=== PATIENT | male | born 1955 | race African-American/Black ===

== ENCOUNTER 2021-01-05 16:14 | Inpatient (IN) | payer MEDICAID, OTHER ==
[~2021-01-05] VITALS: Ht 175.3 cm; Wt 95.3 kg
[2021-01-05] MEDS ORDERED: MORPHINE SULFATE 4 MG/ML CPJ (NOT FOR IM USE) IV STA (16:54)
[2021-01-05] MEDS ORDERED: FUROSEMIDE 40MG/4ML VIAL IV ONE (17:00)
[2021-01-05] MEDS ORDERED: NITROGLYCERIN 50MG PREMIX 250 ML IV ONE (17:00)
[2021-01-05 18:30] LABS: BASOPHILS % 0.1 % (0.0-2.0); EOSINOPHILS % 0.1 % (0.0-5.0); HEMATOCRIT. 35.8 % (42.0-52.0); HEMOGLOBIN. 11.5 g/dL (14.0-18.0); LYMPHOCYTES % 7.1 % (20.0-50.0); MEAN CORPUSCULAR HEMOGLOBIN 36.3 pg (28.0-32.0); MEAN CORPUSCULAR VOLUME 113.2 fL (80.0-94.0); MONOCYTES % 3.9 % (2.0-8.0); NEUTROPHILS % 88.8 % (40.0-76.0); RED BLOOD CELL COUNT 3.17 mill/uL (4.7-6.1); RED CELL DISTRIBUTION WIDTH 16.7 % (11.6-14.6)
[2021-01-05 18:36] LABS: CHLORIDE 111 mEq/L (98-107)
[2021-01-05 19:22] LABS: MEAN PLATELET VOLUME 10.6 fl (7.4-10.4); PLATELET ESTIMATE DECREAS
[2021-01-05 19:23] LABS: PLATELET 82 x1000/uL (130-400)
[2021-01-05] MEDS ORDERED: ALBUTEROL (0.083%) 2.5MG/3ML NEB HHN ONE (23:00)
[2021-01-06] VITALS (78 sets, daily range): BP systolic 62–236; BP diastolic 30–175
[2021-01-06 04:34] LABS: BG BASE EXCESS -0.2 mmol/L (-2.0-2.0); BG CARBOXYHEMOGLOBIN 0.3 % (0.5-1.5); BG DEOXYHEMOGLOBIN 0.9 % (0.0-5.0); BG FRACTION INSPIRED OXYGEN 40; BG HCO3 ACT 23.6 mmol/L (22.0-26.0); BG METHEMOGLOBIN 0.4 % (0.0-1.5); BG OXYGEN SATURATION 99.1 % (92.0-98.5); BG OXYHEMOGLOBIN 98.4 % (94.0-97.0); BG PCO2 35.3 mmHg (35.0-45.0); BG PH 7.443 (7.350-7.450); BG PO2 172.2 mmHg (75.0-100.0); BG SAMPLE SITE LEFT RADIAL; BG TOTAL HEMOGLOBIN 10.2 g/dL (12.0-18.0); BG VENT MODE MASK - BIPAP
[2021-01-06] MEDS ORDERED: MORPHINE SULFATE 2 MG/ML CPJ (NOT FOR IM USE) IV PRN (05:15)
[2021-01-06] MEDS ORDERED: DEXTROSE 50% WATER 50ML SYRINGE IV PRN (05:15)
[2021-01-06] MEDS: INSULIN LISPRO 100 UNITS/ML SUBCUT SCH ×4 (06:08→21:00)
[2021-01-06] MEDS: BLOOD SUGAR DIAGNOSTIC STRIP TEST SCH ×4 (06:08→21:00)
[2021-01-06] MEDS: ACETAMINOPHEN 650MG/20.3ML UDC PO PRN (06:09)
[2021-01-06] MEDS: NITROGLYCERIN 50MG PREMIX 250 ML IV PRN ×4 (06:11→23:57)
[2021-01-06 06:28] LABS: CHLORIDE 110 mEq/L (98-107)
[2021-01-06 06:38] LABS: CREATINE KINASE MB FRACTION 1.2 ng/mL (0.5-3.6); PHOSPHORUS 2.3 mg/dL (2.5-4.9)
[2021-01-06 06:39] LABS: CREATINE KINASE 215 IU/L (39-308); LDL CHOLESTEROL 18 mg/dL (5-100)
[2021-01-06 06:40] LABS: HDL CHOLESTEROL 16 mg/dL (40-59)
[2021-01-06 06:44] LABS: CLARITY URINE CLEAR (CLEAR); COLOR URINE DARK YELLOW (YELLOW); KETONES URINE NEGATIVE (NEGATIVE); LEUKOCYTE ESTERASE URINE TRACE (NEGATIVE); NITRITE URINE NEGATIVE (NEGATIVE); OCCULT BLOOD URINE 3+ (NEGATIVE); PH URINE 5.5 (4.5-8.0); PROTEIN URINE 2+ (NEGATIVE); SPECIFIC GRAVITY URINE 1.021 (1.005-1.030)
[2021-01-06 07:03] LABS: *COCAINE SCREEN URINE NEGATIVE (NEGATIVE); METHADONE URINE SCREEN NEGATIVE (NEGATIVE); OPIATES URINE SCREEN PRESUMTIVE POSITIVE (NEGATIVE)
[2021-01-06 07:04] LABS: *AMPHETAMINES SCREEN URINE NEGATIVE (NEGATIVE); *BARBITURATES SCREEN URINE NEGATIVE (NEGATIVE); *BENZODIAZEPINES SCREEN URINE NEGATIVE (NEGATIVE); CANNABINOID URINE SCREEN NEGATIVE (NEGATIVE); PHENCYCLIDINE URINE SCREEN NEGATIVE (NEGATIVE)
[2021-01-06 07:18] LABS: HEMATOCRIT. 26.4 % (42.0-52.0); HEMOGLOBIN. 8.8 g/dL (14.0-18.0); MEAN CORPUSCULAR HEMOGLOBIN 36.3 pg (28.0-32.0); MEAN CORPUSCULAR VOLUME 109.2 fL (80.0-94.0); MEAN PLATELET VOLUME 10.8 fl (7.4-10.4); PLATELET 68 x1000/uL (130-400); RED BLOOD CELL COUNT 2.41 mill/uL (4.7-6.1); RED CELL DISTRIBUTION WIDTH 16.1 % (11.6-14.6)
[2021-01-06] MEDS ORDERED: ACETAMINOPHEN 325MG TABLET PO PRN (07:45)
[2021-01-06] MEDS ORDERED: FUROSEMIDE 40MG/4ML VIAL IVP SCH ×2 (08:00→09:00)
[2021-01-06] MEDS: PANTOPRAZOLE SODIUM 40 MG/VIAL IV SCH (08:28)
[2021-01-06] MEDS: CEFTRIAXONE 1,000 MG in DEXTROSE 5% WATER 50 ML IV SCH (08:28)
[2021-01-06] MEDS: IPRATROPIUM/ALBUTEROL 0.5-3(2.5)MG/3ML NEB HHN SCH ×5 (08:41→23:59)
[2021-01-06 08:52] LABS: TOTAL IRON BINDING CAPACITY 207 ug/dL (250-450)
[2021-01-06] MEDS ORDERED: CARVEDILOL 3.125 MG TABLET PO SCH (09:00)
[2021-01-06] MEDS ORDERED: CEFTRIAXONE 1 G PREMIX 50 ML IV SCH (09:00)
[2021-01-06] MEDS ORDERED: LISINOPRIL 20MG TABLET PO SCH (09:00)
[2021-01-06] MEDS ORDERED: CARVEDILOL 3.125 MG TABLET PO NR (09:45)
[2021-01-06] MEDS ORDERED: FUROSEMIDE 40MG/4ML VIAL IVP NR (09:45)
[2021-01-06] MEDS: AZITHROMYCIN 500 MG in DEXT 5% WATER 250 ML IV SCH (09:50)
[2021-01-06 11:25] LABS: INR 2.2; PROTHROMBIN TIME 22.4 sec (9.6-11.0)
[2021-01-06 11:32] LABS: T4 FREE 2.77 ng/dL (0.76-1.46)
[2021-01-06 12:44] LABS: PLATELET ESTIMATE DECREASED
[2021-01-06] MEDS: MAGNESIUM OXIDE 400MG TABLET PO SCH (12:55)
[2021-01-06] MEDS ORDERED: LORAZEPAM 2MG/ML CPJ IV PRN (13:15)
[2021-01-06] MEDS: FUROSEMIDE 100MG/10ML VIAL IVP SCH (17:05)
[2021-01-06] MEDS: CHLORDIAZEPOXIDE 25MG CAPSULE PO SCH (17:06)
[2021-01-06] MEDS: LISINOPRIL 20MG TABLET PO SCH (17:06)
[2021-01-06] MEDS: HYDRALAZINE 20MG/ML VIAL IV PRN ×2 (18:36→22:28)
[2021-01-06 20:03] LABS: BG BASE EXCESS 0.1 mmol/L (-2.0-2.0); BG CARBOXYHEMOGLOBIN 0.1 % (0.5-1.5); BG DEOXYHEMOGLOBIN 0.2 % (0.0-5.0); BG FRACTION INSPIRED OXYGEN 100; BG HCO3 ACT 24.1 mmol/L (22.0-26.0); BG METHEMOGLOBIN 0.6 % (0.0-1.5); BG OXYGEN SATURATION 99.8 % (92.0-98.5); BG OXYHEMOGLOBIN 99.1 % (94.0-97.0); BG PCO2 36.4 mmHg (35.0-45.0); BG PH 7.439 (7.350-7.450); BG PO2 433.3 mmHg (75.0-100.0); BG SAMPLE SITE LEFT RADIAL; BG TOTAL HEMOGLOBIN 9.9 g/dL (12.0-18.0); BG VENT MODE MASK - BIPAP
[2021-01-06] MEDS: ATORVASTATIN CALCIUM 40MG TABLET PO SCH (21:00)
[2021-01-06] MEDS: CARVEDILOL 6.25 MG TABLET PO SCH (21:00)
[2021-01-06] MEDS ORDERED: CHLORDIAZEPOXIDE 25MG CAPSULE PO SCH (22:00)
[2021-01-07] VITALS (94 sets, daily range): BP systolic 96–196; BP diastolic 45–139
[2021-01-07] MEDS: CHLORDIAZEPOXIDE 25MG CAPSULE PO SCH (02:00)
[2021-01-07] MEDS: IPRATROPIUM/ALBUTEROL 0.5-3(2.5)MG/3ML NEB HHN SCH ×5 (04:00→20:31)
[2021-01-07] MEDS: HYDRALAZINE 20MG/ML VIAL IV PRN ×2 (04:48→22:45)
[2021-01-07] MEDS: ONDANSETRON HCL 4MG/2ML INJ IV PRN (04:48)
[2021-01-07 05:00] LABS: HEMATOCRIT. 28.6 % (42.0-52.0); HEMOGLOBIN. 9.2 g/dL (14.0-18.0); MEAN CORPUSCULAR HEMOGLOBIN 35.7 pg (28.0-32.0); MEAN CORPUSCULAR VOLUME 111.2 fL (80.0-94.0); MEAN PLATELET VOLUME 10.9 fl (7.4-10.4); PLATELET 69 x1000/uL (130-400); RED BLOOD CELL COUNT 2.58 mill/uL (4.7-6.1); RED CELL DISTRIBUTION WIDTH 16.7 % (11.6-14.6)
[2021-01-07 05:28] LABS: CHLORIDE 111 mEq/L (98-107)
[2021-01-07] MEDS: ACETAMINOPHEN 650MG/20.3ML UDC PO PRN ×2 (05:30→23:08)
[2021-01-07 05:35] LABS: PHOSPHORUS 3.3 mg/dL (2.5-4.9)
[2021-01-07] MEDS: BLOOD SUGAR DIAGNOSTIC STRIP TEST SCH (06:21)
[2021-01-07] MEDS: INSULIN LISPRO 100 UNITS/ML SUBCUT SCH (06:21)
[2021-01-07] MEDS: CEFTRIAXONE 1,000 MG in DEXTROSE 5% WATER 50 ML IV SCH (07:47)
[2021-01-07] MEDS: PANTOPRAZOLE SODIUM 40 MG/VIAL IV SCH (08:33)
[2021-01-07] MEDS: FUROSEMIDE 100MG/10ML VIAL IVP SCH (08:33)
[2021-01-07] MEDS: AZITHROMYCIN 500 MG in DEXT 5% WATER 250 ML IV SCH (08:33)
[2021-01-07] MEDS: THIAMINE HCL 100MG TABLET PO SCH (08:37)
[2021-01-07] MEDS: MAGNESIUM OXIDE 400MG TABLET PO SCH (08:38)
[2021-01-07] MEDS: LISINOPRIL 20MG TABLET PO SCH ×2 (08:39→16:19)
[2021-01-07] MEDS: CARVEDILOL 6.25 MG TABLET PO SCH ×2 (08:39→21:29)
[2021-01-07 08:51] LABS: BG BASE EXCESS -0.2 mmol/L (-2.0-2.0); BG CARBOXYHEMOGLOBIN 0.6 % (0.5-1.5); BG DEOXYHEMOGLOBIN 14.1 % (0.0-5.0); BG FRACTION INSPIRED OXYGEN 50; BG HCO3 ACT 24.3 mmol/L (22.0-26.0); BG METHEMOGLOBIN 0.1 % (0.0-1.5); BG OXYGEN SATURATION 85.8 % (92.0-98.5); BG OXYHEMOGLOBIN 85.2 % (94.0-97.0); BG PH 7.413 (7.350-7.450); BG PO2 50.6 mmHg (75.0-100.0); BG SAMPLE SITE LEFT RADIAL; BG TOTAL HEMOGLOBIN 9.4 g/dL (12.0-18.0); BG VENT MODE MASK - BIPAP
[2021-01-07 14:04] LABS: PLATELET ESTIMATE DECREASED
[2021-01-07 15:48] LABS: HEPATITIS B SURFACE ANTIGEN NEGATIVE
[2021-01-07 16:14] LABS: HEPATITIS A AB IGM NEGATIVE (NEGATIVE)
[2021-01-07] MEDS: FUROSEMIDE 40MG/4ML VIAL IVP SCH (16:19)
[2021-01-07] MEDS: SPIRONOLACTONE 25MG TABLET PO SCH (16:23)
[2021-01-07] MEDS ORDERED: CHLORDIAZEPOXIDE 25MG CAPSULE PO SCH (18:00)
[2021-01-07] MEDS: ATORVASTATIN CALCIUM 40MG TABLET PO SCH (21:29)
[2021-01-07] MEDS: LORAZEPAM 2MG/ML CPJ IV PRN (21:36)
[2021-01-08] VITALS (19 sets, daily range): BP systolic 103–178; BP diastolic 52–105
[2021-01-08] MEDS: IPRATROPIUM/ALBUTEROL 0.5-3(2.5)MG/3ML NEB HHN SCH ×6 (00:16→21:08)
[2021-01-08 06:22] LABS: HEMATOCRIT. 27.1 % (42.0-52.0); HEMOGLOBIN. 8.9 g/dL (14.0-18.0); MEAN CORPUSCULAR HEMOGLOBIN 35.2 pg (28.0-32.0); MEAN CORPUSCULAR VOLUME 107.3 fL (80.0-94.0); MEAN PLATELET VOLUME 10.7 fl (7.4-10.4); PLATELET 75 x1000/uL (130-400); RED BLOOD CELL COUNT 2.52 mill/uL (4.7-6.1); RED CELL DISTRIBUTION WIDTH 15.6 % (11.6-14.6)
[2021-01-08 06:45] LABS: CHLORIDE 109 mEq/L (98-107)
[2021-01-08] MEDS: CEFTRIAXONE 1,000 MG in DEXTROSE 5% WATER 50 ML IV SCH (08:30)
[2021-01-08] MEDS: THIAMINE HCL 100MG TABLET PO SCH (08:55)
[2021-01-08] MEDS: LISINOPRIL 20MG TABLET PO SCH ×2 (08:57→16:18)
[2021-01-08] MEDS: CARVEDILOL 6.25 MG TABLET PO SCH ×2 (08:57→21:35)
[2021-01-08] MEDS: MAGNESIUM OXIDE 400MG TABLET PO SCH (08:57)
[2021-01-08] MEDS: TRAMADOL 50MG TABLET PO PRN ×2 (08:58→16:10)
[2021-01-08] MEDS: FUROSEMIDE 40MG/4ML VIAL IVP SCH ×2 (09:00→16:18)
[2021-01-08] MEDS: PANTOPRAZOLE SODIUM 40 MG/VIAL IV SCH (09:02)
[2021-01-08] MEDS: SPIRONOLACTONE 25MG TABLET PO SCH (09:10)
[2021-01-08] MEDS: LORAZEPAM 2MG/ML CPJ IV PRN (10:02)
[2021-01-08 10:47] LABS: PLATELET ESTIMATE DECREASED
[2021-01-08] MEDS: AZITHROMYCIN 500 MG in DEXT 5% WATER 250 ML IV SCH (11:15)
[2021-01-08] MEDS: ATORVASTATIN CALCIUM 40MG TABLET PO SCH (21:35)
[2021-01-09] VITALS (12 sets, daily range): BP systolic 122–163; BP diastolic 68–87
[2021-01-09] MEDS: IPRATROPIUM/ALBUTEROL 0.5-3(2.5)MG/3ML NEB HHN SCH ×6 (01:58→21:05)
[2021-01-09 05:51] LABS: HEMOGLOBIN. 8.8 g/dL (14.0-18.0); MEAN CORPUSCULAR HEMOGLOBIN 35.1 pg (28.0-32.0); MEAN CORPUSCULAR VOLUME 107.4 fL (80.0-94.0); MEAN PLATELET VOLUME 10.8 fl (7.4-10.4); PLATELET 73 x1000/uL (130-400); RED BLOOD CELL COUNT 2.51 mill/uL (4.7-6.1); RED CELL DISTRIBUTION WIDTH 15.9 % (11.6-14.6)
[2021-01-09 06:16] LABS: CHLORIDE 110 mEq/L (98-107)
[2021-01-09] MEDS: PANTOPRAZOLE SODIUM 40 MG/VIAL IV SCH (08:17)
[2021-01-09] MEDS: FUROSEMIDE 40MG/4ML VIAL IVP SCH ×2 (08:17→16:00)
[2021-01-09] MEDS: CEFTRIAXONE 1,000 MG in DEXTROSE 5% WATER 50 ML IV SCH (08:17)
[2021-01-09] MEDS: LISINOPRIL 20MG TABLET PO SCH ×2 (08:19→16:06)
[2021-01-09] MEDS: SPIRONOLACTONE 25MG TABLET PO SCH (08:20)
[2021-01-09] MEDS: MAGNESIUM OXIDE 400MG TABLET PO SCH (08:21)
[2021-01-09] MEDS: CARVEDILOL 6.25 MG TABLET PO SCH ×2 (08:21→20:04)
[2021-01-09] MEDS: THIAMINE HCL 100MG TABLET PO SCH (08:22)
[2021-01-09] MEDS: AZITHROMYCIN 500 MG in DEXT 5% WATER 250 ML IV SCH (09:39)
[2021-01-09 10:09] LABS: PLATELET ESTIMATE DECREASED
[2021-01-09] MEDS ORDERED: HYDROCODONE/ACETAMINOPHEN 5/325MG TABLET PO NR (14:23)
[2021-01-09] MEDS: ATORVASTATIN CALCIUM 40MG TABLET PO SCH (20:04)
[2021-01-10] VITALS (12 sets, daily range): BP systolic 113–172; BP diastolic 51–98
[2021-01-10] MEDS: IPRATROPIUM/ALBUTEROL 0.5-3(2.5)MG/3ML NEB HHN SCH ×6 (00:32→21:06)
[2021-01-10] MEDS: HYDRALAZINE 20MG/ML VIAL IV PRN (01:04)
[2021-01-10] MEDS: LORAZEPAM 2MG/ML CPJ IV PRN (01:51)
[2021-01-10] MEDS: ONDANSETRON HCL 4MG/2ML INJ IV PRN (03:07)
[2021-01-10 05:59] LABS: CHLORIDE 109 mEq/L (98-107)
[2021-01-10 06:06] LABS: HEMATOCRIT. 27.2 % (42.0-52.0); HEMOGLOBIN. 9.2 g/dL (14.0-18.0); MEAN CORPUSCULAR VOLUME 106.5 fL (80.0-94.0); MEAN PLATELET VOLUME 10.9 fl (7.4-10.4); PLATELET 86 x1000/uL (130-400); RED BLOOD CELL COUNT 2.55 mill/uL (4.7-6.1); RED CELL DISTRIBUTION WIDTH 15.6 % (11.6-14.6)
[2021-01-10 11:10] LABS: ATYPICAL LYMPHOCYTES 1
[2021-01-10 11:11] LABS: PLATELET ESTIMATE DECREASED
[2021-01-10] MEDS: CEFTRIAXONE 1,000 MG in DEXTROSE 5% WATER 50 ML IV SCH (11:46)
[2021-01-10] MEDS: MAGNESIUM OXIDE 400MG TABLET PO SCH (11:47)
[2021-01-10] MEDS: FUROSEMIDE 40MG/4ML VIAL IVP SCH ×2 (11:47→17:01)
[2021-01-10] MEDS: PANTOPRAZOLE SODIUM 40 MG/VIAL IV SCH (11:47)
[2021-01-10] MEDS: THIAMINE HCL 100MG TABLET PO SCH (11:47)
[2021-01-10] MEDS: LISINOPRIL 20MG TABLET PO SCH ×2 (11:47→17:03)
[2021-01-10] MEDS: SPIRONOLACTONE 25MG TABLET PO SCH (11:49)
[2021-01-10] MEDS: CARVEDILOL 6.25 MG TABLET PO SCH ×2 (11:52→21:14)
[2021-01-10 12:44] LABS: BG BASE EXCESS 1.3 mmol/L (-2.0-2.0); BG CARBOXYHEMOGLOBIN 0.3 % (0.5-1.5); BG DEOXYHEMOGLOBIN 3.7 % (0.0-5.0); BG HCO3 ACT 24.5 mmol/L (22.0-26.0); BG METHEMOGLOBIN 0.3 % (0.0-1.5); BG OXYGEN SATURATION 96.3 % (92.0-98.5); BG OXYHEMOGLOBIN 95.7 % (94.0-97.0); BG PCO2 33.4 mmHg (35.0-45.0); BG PH 7.483 (7.350-7.450); BG PO2 83.8 mmHg (75.0-100.0); BG SAMPLE SITE RIGHT RADIAL; BG TOTAL HEMOGLOBIN 9.9 g/dL (12.0-18.0); BG VENT MODE NASAL CANNULA
[2021-01-10] MEDS ORDERED: HYDRALAZINE HCL 100MG TABLET PO NR (12:45)
[2021-01-10] MEDS: AZITHROMYCIN 500 MG in DEXT 5% WATER 250 ML IV SCH (13:27)
[2021-01-10] MEDS: HYDRALAZINE HCL 100MG TABLET PO SCH ×2 (15:07→21:13)
[2021-01-10] MEDS: TRAMADOL 50MG TABLET PO PRN (17:04)
[2021-01-10] MEDS: ATORVASTATIN CALCIUM 40MG TABLET PO SCH (21:15)
[2021-01-11] VITALS (10 sets, daily range): BP systolic 105–131; BP diastolic 39–93
[2021-01-11] MEDS: IPRATROPIUM/ALBUTEROL 0.5-3(2.5)MG/3ML NEB HHN SCH ×6 (00:33→20:00)
[2021-01-11] MEDS: ACETAMINOPHEN 650MG/20.3ML UDC PO PRN (01:14)
[2021-01-11] MEDS: HYDRALAZINE HCL 100MG TABLET PO SCH ×3 (05:36→21:00)
[2021-01-11 06:16] LABS: CHLORIDE 111 mEq/L (98-107)
[2021-01-11 06:19] LABS: HEMATOCRIT. 25.4 % (42.0-52.0); HEMOGLOBIN. 8.3 g/dL (14.0-18.0); MEAN CORPUSCULAR HEMOGLOBIN 35.9 pg (28.0-32.0); MEAN CORPUSCULAR VOLUME 109.2 fL (80.0-94.0); MEAN PLATELET VOLUME 11.2 fl (7.4-10.4); PLATELET 82 x1000/uL (130-400); RED BLOOD CELL COUNT 2.32 mill/uL (4.7-6.1); RED CELL DISTRIBUTION WIDTH 15.4 % (11.6-14.6)
[2021-01-11] MEDS: FUROSEMIDE 40MG/4ML VIAL IVP SCH (08:39)
[2021-01-11] MEDS: PANTOPRAZOLE SODIUM 40 MG/VIAL IV SCH (08:39)
[2021-01-11] MEDS: LISINOPRIL 20MG TABLET PO SCH ×2 (08:40→16:53)
[2021-01-11] MEDS: TRAMADOL 50MG TABLET PO PRN (08:40)
[2021-01-11] MEDS: THIAMINE HCL 100MG TABLET PO SCH (08:41)
[2021-01-11] MEDS: CARVEDILOL 6.25 MG TABLET PO SCH ×2 (08:41→20:59)
[2021-01-11] MEDS: SPIRONOLACTONE 25MG TABLET PO SCH (08:42)
[2021-01-11] MEDS: CEFTRIAXONE 1,000 MG in DEXTROSE 5% WATER 50 ML IV SCH (09:26)
[2021-01-11] MEDS: MAGNESIUM OXIDE 400MG TABLET PO SCH (09:26)
[2021-01-11] MEDS: HYDROCODONE/ACETAMINOPHEN 5/325MG TABLET PO PRN ×3 (12:25→22:30)
[2021-01-11 14:35] LABS: PLATELET ESTIMATE DECREASED
[2021-01-11] MEDS ORDERED: LEVO750T46 MT (16:13)
[2021-01-11] MEDS ORDERED: HYDR100T26 PO (16:18)
[2021-01-11] MEDS ORDERED: COR6 PO (16:18)
[2021-01-11] MEDS ORDERED: POTA20TA82 MT (16:18)
[2021-01-11] MEDS ORDERED: FURO-151 MT (16:18)
[2021-01-11] MEDS ORDERED: LOSA100T32 MT (16:18)
[2021-01-11] MEDS ORDERED: METH10TA7 MT (16:18)
[2021-01-11] MEDS: METHIMAZOLE 5MG TABLET PO SCH (16:53)
[2021-01-11] MEDS: FUROSEMIDE 40MG TABLET PO SCH (17:00)
[2021-01-11] MEDS: ATORVASTATIN CALCIUM 40MG TABLET PO SCH (21:43)
[2021-01-12] VITALS: BP 140/77
[2021-01-12] MEDS: IPRATROPIUM/ALBUTEROL 0.5-3(2.5)MG/3ML NEB HHN SCH ×5 (00:21→16:40)
[2021-01-12] MEDS: HYDROCODONE/ACETAMINOPHEN 5/325MG TABLET PO PRN ×3 (01:50→14:11)
[2021-01-12 04:00] VITALS: BP 135/61
[2021-01-12] MEDS: HYDRALAZINE HCL 100MG TABLET PO SCH ×2 (05:25→13:21)
[2021-01-12] MEDS: FUROSEMIDE 40MG TABLET PO SCH (06:05)
[2021-01-12 08:00] VITALS: BP 160/80
[2021-01-12] MEDS: PANTOPRAZOLE SODIUM 40 MG/VIAL IV SCH (08:17)
[2021-01-12] MEDS: CARVEDILOL 6.25 MG TABLET PO SCH (08:17)
[2021-01-12] MEDS: MAGNESIUM OXIDE 400MG TABLET PO SCH (08:17)
[2021-01-12] MEDS: METHIMAZOLE 5MG TABLET PO SCH ×3 (08:17→17:00)
[2021-01-12] MEDS: LISINOPRIL 20MG TABLET PO SCH ×2 (08:17→17:00)
[2021-01-12] MEDS: THIAMINE HCL 100MG TABLET PO SCH (08:17)
[2021-01-12] MEDS: CEFTRIAXONE 1,000 MG in DEXTROSE 5% WATER 50 ML IV SCH (08:18)
[2021-01-12] MEDS: SPIRONOLACTONE 25MG TABLET PO SCH (08:18)
[2021-01-12] MEDS ORDERED: HYDR-4001 MT (10:23)
[2021-01-12 12:00] VITALS: BP 125/74
[2021-01-12 14:14] VITALS: BP 121/65
[2021-01-12 16:00] VITALS: BP 115/50
[2021-01-13] MEDS ORDERED: FUROSEMIDE 40MG TABLET PO SCH (09:00)
== END 2021-01-12 17:25 | disposition home health service (06) | DRG 720 ==
LOC: ER 16:14 → MICUSO 20:17 → ENRESERV 01-06 00:16 → MICUSO 01-06 04:35 → MICUNO 01-07 19:20 → 5EST 01-08 03:20
PROVIDERS: ADMIT Internal Medicine; ATTEND Internal Medicine
PROC: 5A09457 Assistance with Respiratory Ventilation, 24-96 Consecutive Hours, Continuous Positive Airway Pressure (ICD-10-PCS; principal; 2021-01-05)
PROC: 5A09357 Assistance with Respiratory Ventilation, Less than 24 Consecutive Hours, Continuous Positive Airway Pressure (ICD-10-PCS; 2021-01-08)
PROC: 5A09357 Assistance with Respiratory Ventilation, Less than 24 Consecutive Hours, Continuous Positive Airway Pressure (ICD-10-PCS; 2021-01-09)
DX: A41.51 Sepsis due to Escherichia coli [E. coli] (principal); J96.01 Acute respiratory failure with hypoxia; I21.A1 Myocardial infarction type 2; E43 Unspecified severe protein-calorie malnutrition; G93.40 Encephalopathy, unspecified; D68.9 Coagulation defect, unspecified; I50.33 Acute on chronic diastolic (congestive) heart failure; E87.8 Other disorders of electrolyte and fluid balance, not elsewhere classified; D69.6 Thrombocytopenia, unspecified; K74.60 Unspecified cirrhosis of liver; D64.9 Anemia, unspecified; E11.9 Type 2 diabetes mellitus without complications; I16.1 Hypertensive emergency; R65.20 Severe sepsis without septic shock; Z20.822 Contact with and (suspected) exposure to COVID-19; R80.9 Proteinuria, unspecified; E05.90 Thyrotoxicosis, unspecified without thyrotoxic crisis or storm; I27.20 Pulmonary hypertension, unspecified; B19.20 Unspecified viral hepatitis C without hepatic coma; N39.0 Urinary tract infection, site not specified; I11.0 Hypertensive heart disease with heart failure; F10.10 Alcohol abuse, uncomplicated; Y90.9 Presence of alcohol in blood, level not specified; Z91.14 Patient's other noncompliance with medication regimen; Z68.31 Body mass index [BMI] 31.0-31.9, adult; Z59.0 Homelessness
CPT/HCPCS: 36415; 36600; 71045; 74018; 76700; 80048; 80053; 80061; 80305; 81003; 82140; 82270; 82375; 82550; 82553; 82728; 82805; 82962; 83036; 83540; 83550; 83735; 83880; 84100; 84439; 84443; 84481; 84484; 85025; 86705; 86709; 86803; 87015; 87045; 87077; 87186; 87340; 87427; 87449; 87493; 92950; 93005; 93306; 93970; 94640; 94660; 97110; 97163; 97166; 97530; 99291; A6261; C1893; C9113; J0360; J0456; J0696; J1940; J2060; J2270; J2405; J3490; J7060; U0003; U0005